=== PATIENT | male | born 1970 | race Caucasian/White ===

== ENCOUNTER 2016-08-28 18:28 | Emergency (ER) | payer MEDICAID | END 2016-08-28 19:26 | disposition left against medical advice (07) | LOC: UCEAST 18:28 | DX: J06.9 Acute upper respiratory infection, unspecified (principal); Z53.21 Procedure and treatment not carried out due to patient leaving prior to being seen by health care provider ==

== ENCOUNTER → 2016-12-28 10:46 | Emergency (ER) | payer BC, MEDICAID ==
[~2016-12-28 10:46] MED LIST: Cyclobenzaprine TAB* 10 MG PO ONE; Dexamethasone TAB* 4 MG PO ONE; oxyCODONE/Acetamin 5/325 MG* TAB PO ONE
[2016-12-28 11:15] VITALS: BP 123/89
--- NOTE | 2016-12-28 12:24 | RAD ---
HISTORY: Lifting injury, back pain COMPARISONS: None TECHNIQUE: Multiple contiguous axial CT scans were obtained of the lumbar spine without intravenous contrast, with coronal and sagittal multiplanar reformations. FINDINGS: SPINAL CANAL: Evaluation of the central canal is limited on CT technique; however, there is no obvious canalicular mass or epidural hemorrhage. ALIGNMENT: The alignment is normal. VERTEBRAL BODIES: The vertebral bodies are preserved in height. The bones are normal in attenuation. There is mild anterolateral marginal osteophyte formation JOINTS: No subluxation or dislocation MUSCULATURE: Normal INTERVERTEBRAL DISCS: There is diffuse loss of intervertebral disc height throughout the spine. AXIAL IMAGES: Limited 12: There is no osseous neural foraminal area or central canal stenosis. T12-L1: There is no osseous neural foraminal narrowing or central canal stenosis. L1-L2: There is no osseous neural foraminal narrowing or central canal stenosis. L2-L3: There is no osseous neural foraminal narrowing or central canal stenosis. L3-L4: There is no osseous neural foraminal narrowing or central canal stenosis. L4-L5: There is mild bilateral facet hypertrophy. There is marginal osteophyte formation at the neural foramina bilaterally. There is moderate bilateral neuroforaminal narrowing. There is no significant central canal stenosis. L5-S1: There is marginal osteophyte formation at the neural foramina bilaterally. There is mild right neural foraminal narrowing. There is no osseous central canal stenosis. SOFT TISSUES: The visualized soft tissues of the abdomen are unremarkable. OTHER: None IMPRESSION: MILD DEGENERATIVE CHANGES. NEURAL FORAMINAL NARROWING DESCRIBED ABOVE. THERE IS NO OSSEOUS CENTRAL CANAL STENOSIS..
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
== END | disposition home or self-care (01) ==
LOC: ED 10:46
DX: M54.9 Dorsalgia, unspecified (principal)
CPT/HCPCS: 72131; 99282; A9270-GY; J8540

== ENCOUNTER 2016-12-30 12:17 | Emergency (ER) | payer BC ==
[2016-12-30 13:05] VITALS: BP 127/78
--- NOTE | 2016-12-30 14:59 | RAD ---
Indication: Right wrist injury. 3 views of the wrist demonstrates no fracture. No other bone or joint abnormality is identified. IMPRESSION: NO FRACTURE OF THE WRIST IS NOTED.
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
== END 2016-12-30 15:12 | disposition home or self-care (01) ==
LOC: ED 12:17
DX: M25.531 Pain in right wrist (principal); H53.149 Visual discomfort, unspecified
CPT/HCPCS: 99281